=== PATIENT | female | born 1955 | race Caucasian/White ===

== ENCOUNTER 2020-05-15 09:59 | Observation (INO) | payer OTHER, MEDICAID, SELFPAY ==
[2020-05-15] VITALS (18 sets, daily range): BP systolic 155–192; BP diastolic 75–109; PULSE 69–92; RESP 14–24; TEMP 35.9–36.6; O2SAT 95–100; BMI 38.6
--- NOTE | 2020-05-15 10:19 | ED.NEUROSD ---
HPI - Neuro Symptoms/Deficit General Chief Complaint: Neuro Symptoms/Deficit Stated Complaint: Left Sided weakness Time Seen by Provider: 05/15/20 10:07 Source: patient Mode of arrival: Ambulatory Limitations: no limitations History of Present Illness HPI Narrative: Patient is a 65-year-old female history of hypertension presenting with left arm weakness. She says she woke up this morning at 5:00 a.m. in was normal. She got coffee and was able to drink it without difficulty around 930 this morning she noticed that she was unable to lift her coffee and felt like her arm was giving out. She then got up to get on the sailboat and felt like her left leg was weak. Symptoms lasted less than 30 minutes. She feels like her leg has improved in fact she is able to walk from the parking lot to the emergency department without any difficulty. Her arm weakness has also improved. No prior history of stroke. Last known well at 9:30 a.m. Related Data Home Medications Medication Instructions Recorded Confirmed calcium carbonate [Calcium 500] 1,000 mg PO DAILY 05/15/20 05/15/20 cholecalciferol (vitamin D3) 50 mcg PO DAILY 05/15/20 05/15/20 [Vitamin D3] cyclobenzaprine 10 mg PO BID 05/15/20 05/15/20 furosemide 80 mg PO BID 05/15/20 05/15/20 spironolactone 100 mg PO DAILY 05/15/20 05/15/20 vitamin B complex [B 1 tab PO DAILY 05/15/20 05/15/20 Complex-Vitamin B12] Review of Systems Review of Systems Narrative: GENERAL: Denies chills, fatigue, malaise, fever, sweats, travel HEENT: Denies sinus pain, ear pain, sore throat, difficulty swallowing, neck pain RESPIRATORY: Denies dyspnea, cough, wheezing, hemoptysis, sputum. CARDIOVASCULAR: Denies chest pain, palpitations, orthopnea, edema GASTROINTESTINAL: Denies nausea, vomiting, abdominal pain, diarrhea, constipation, melena. : Denies dysuria, frequency, incontinence, hematuria, urinary retention, flank pain. MUSCULOSKELETAL: Denies weakness, joint pain, or bony pain SKIN: No rash, no erythema, no pruritus NEUROLOGIC: See HPI PSYCHIATRIC: No concerning psychosocial issues. 12 point review of systems is negative except for those stated above and HPI Patient History Medical History Compression fracture (Acute) Hepatitis C infection (Acute) History of abdominal paracentesis (Acute) Hypertension (Acute) Non-alcoholic cirrhosis (Acute) Osteoporosis (Acute) Surgical History H/O: hysterectomy (Acute) History of appendectomy (Acute) History of liver biopsy (Acute) Hx of cholecystectomy (Acute) Social History household members: other Smoking Status: Current every day smoker alcohol intake: never Exam Initial Vital Signs Initial Vital Signs: Vital Signs Respiratory Rate 18 05/15/20 10:15 Blood Pressure 161/75 H 05/15/20 10:15 Pulse Oximetry 96 05/15/20 10:15 GENERAL: Well-appearing, well-nourished and in no acute distress. HEENT: Head atraumatic,EOMI, pupils reactive, face symmetric CARDIOVASCULAR: Regular rate and rhythm without murmurs, rubs or gallops. RESPIRATORY: Breath sounds equal bilaterally, no wheezes rales or rhonchi. ABDOMEN: Soft, nontender. Normoactive bowel sounds all 4 quadrants. No guarding or rebound. EXTREMITIES: Normal range of motion, no clubbing or edema. Neurovascularly intact NEUROLOGICAL: Alert and oriented x4.Normal gait and speech. Cranial nerves II through XII grossly intact. Difficulty finger to nose with left arm but right arm is okay, good [id number], strength equal bilaterally, no dysarthria or aphasia, sensation in tact to soft touch bilaterally, no visual changes, no facial droop SKIN: Warm, dry, no laceration, no petechiae, no rashes or lesions. Scores NIH Stroke Scale Level of Conciousness: Alert, keenly responsive Ask month/age: Answers both questions correctly. Open/close eyes, close hand: Performs both tasks correctly Best gaze horizontal: Normal Visual chandra: No visual loss Facial palsy: Normal symetrical movement Left arm drift: No drift for full 10 sec Right arm drift: No drift for full 10 sec Left leg drift: No drift for full 10 sec Right leg drift: No drift for full 10 sec Limb ataxia: Present in one limb Sensory on face/arms/legs: Normal, no sensory loss Best language: No aphasia, normal Dysarthria: Normal Extinction or inattention: No abnormality Total NIH Stroke scale score: 1 Course Orders Ordered: ED Orders 05/15/20 10:12 Urine Drug Screen, Rapid Stat EKG-12 Lead Stat 05/15/20 10:15 Complete Blood Count AUTO DIFF Stat Comprehensive Metabolic Panel Stat Partial Thromboplastin Time Stat Prothrombin Time INR Stat Troponin & CK Cardiac Panel Stat 05/15/20 10:18 CT Stroke Stat 05/15/20 11:02 MR stroke Urgent Discontinued Medications Aspirin (Aspirin Chew) 324 mg PO NOW ONE Stop: 05/15/20 10:39 Last Admin: 05/15/20 10:55 Dose: 324 mg Documented by: JOEL Rodriguez Consultation #1: Spoke with [facility] health neurologist in regards to symptoms. Patient is ambulatory and does not have any lower extremity a ataxia at this time does not recommend tPA with low NIH stroke scale. Also symptoms are improving. Time: 10:27 Vital Signs Vital signs: Vital Signs - 8 hr 05/15/20 10:15 05/15/20 10:27 05/15/20 10:30 Pulse Rate 85 85 Respiratory Rate 18 22 23 Blood Pressure 161/75 H Pulse Oximetry 96 05/15/20 10:32 05/15/20 10:45 05/15/20 11:00 Pulse Rate 84 80 82 Respiratory Rate 24 14 16 Blood Pressure 185/86 H Pulse Oximetry 95 97 97 MDM - Neuro Symptoms/Deficit Lab Data Attestation: I reviewed the patient's lab results. Result diagrams: 05/15/20 10:15 05/15/20 10:15 Labs: Lab Results 05/15/20 05/15/20 05/15/20 Range/Units 10:15 10:15 10:15 WBC 6.4 (4.5-11.0) X10^3/uL RBC 4.67 (4.0-5.2) X10^6/uL Hgb 13.3 (12.0-16.0) g/dL Hct 39.9 (36-46) % MCV 85.4 (80-100) fL MCH 28.5 (26-34) PG MCHC 33.3 (30-36) % RDW 15.7 H (11.6-14.8) % Plt Count 335 (150-400) X10^3/uL Neut % (Auto) 64.8 (50-75) % Lymph % (Auto) 26.7 (25-40) % Edmunds % (Auto) 5.4 (3-14) % Eos % (Auto) 1.9 L (2-4) % Baso % (Auto) 1.2 (0-2) % Neut # (Auto) 4200 (7212-2645) /uL Lymph # (Auto) 1700 (0985-0710) /uL Edmunds # (Auto) 300 (0-900) /uL Eos # (Auto) 100 (0-450) /uL Baso # (Auto) 100 (0-100) /uL PT 11.8 (10.1-12.7) SECONDS INR 1.0 (0.9-1.3) APTT 31 (26.4-36.2) SECONDS Sodium 139 (137-145) mmol/L Potassium 4.2 (3.4-5.1) mmol/L Chloride 110 H (98-107) mmol/L Carbon Dioxide 21 L (22-32) mmol/L BUN 11 (7-17) mg/dL Creatinine 0.69 (0.52-1.04) mg/dL Estimated GFR > 60.0 (>60) mL/min BUN/Creatinine Ratio 15.9 (6-22) Glucose 150 H (80-110) mg/dL Calcium 9.4 (8.4-10.2) mg/dL Total Bilirubin 0.7 (0.2-1.3) mg/dL AST 26 (14-36) IU/L ALT 20 (<35) IU/L Alkaline Phosphatase 95 (38-126) U/L Total Creatine Kinase 67 (30-135) U/L CK-MB (CK-2) TNP CK-MB (CK-2) Rel Index TNP Troponin I < 0.012 (0.01-0.034) ng/mL Total Protein 7.4 (6.3-8.2) g/dL Albumin 4.3 (3.5-5.0) g/dL Globulin 3.1 (1.7-4.1) g/dL Albumin/Globulin Ratio 1.4 (1.0-2.8) Imaging Data CT scan - head: Radiologist's Impression: PROCEDURE: CT STROKE INDICATIONS: left arm weakness TECHNIQUE: Noncontrast 4.5 mm thick angled axial sections acquired from the foramen magnum to the vertex, with coronal reformats. For radiation dose reduction, the following was used: automated exposure control, adjustment of mA and/or kV according to patient size. COMPARISON: None. FINDINGS: Image quality: Excellent. CSF spaces: Basal cisterns are patent. No extra-axial fluid collections. The ventricles are symmetric in size and shape. Brain: There are foci of hypodensities in the left basal ganglia, right internal capsule and right subinsular white matter, compatible with old or late subacute lacunar infarcts. No intracranial bleeds or masses. There is cerebral volume loss for age, with resultant ventricular and sulcal prominence. There are mild periventricular and deep white matter chronic small vessel ischemic changes. There is intracranial internal carotid artery atherosclerosis. Skull and face: Calvarium and visualized facial bones appear intact, without suspicious lesions. Sinuses: Visualized sinuses and mastoids are clear. IMPRESSION: 1. No acute intracranial abnormalities. 2. Small old or late subacute lacunar infarcts involving the left basal ganglia, right internal capsule and subinsular white matter. 3. Cerebral volume loss and chronic microvascular ischemic changes. The result was discussed with Dr. Pagan on 05/15/2020 at 1025 hours. This study fulfills neurological imaging criteria for inclusion or exclusion of acute stroke therapies based on available published neurological guidelines. Dictated by: Kt Jara M.D. on 05/15/2020 at 10:25 Approved by: Kt Jara M.D. on 05/15/2020 at 10:31 ECG Data Attestation: I personally reviewed and interpreted this ECG as follows: Prior ECG tracings: not available for review Interpretation: Normal sinus rhythm rate 86 p.r. interval 1-[address] changes MDM Narrative Medical decision making narrative: The patient is re-evaluated her ataxia and her left his arm has improved although she still is slightly off. Neurology does tPA patient then complained of some numbness in her hand a lot in her thenar eminence but no other symptoms. Patient is being admitted for TIA/CVA workup she was given aspirin. Dr. Phillips, updated patient's symptoms test results agrees with observation Discharge Plan Departure Patient Disposition: Admitted as Observation Clinical Impression: Brain TIA Admit Date/Time: 05/15/20 11:03 Admit Provider: Checo Phillips
[2020-05-15 10:23] LABS: Add Manual Diff / Slide Review NO; Basophils Absolute Auto 100 /uL (0-100); Basophils Percent Auto 1.2 % (0-2); Eosinophils Absolute Auto 100 /uL (0-450); Eosinophils Percent Auto 1.9 % (2-4); Hematocrit 39.9 % (36-46); Hemoglobin 13.3 g/dL (12.0-16.0); Lymphocytes Absolute Auto 1700 /uL (1100-4500); Lymphocytes Percent Auto 26.7 % (25-40); Mean Corpuscular HGB Conc 33.3 % (30-36); Mean Corpuscular Hemoglobin 28.5 PG (26-34); Mean Corpuscular Volume 85.4 fL (80-100); Monocytes Absolute Auto 300 /uL (0-900); Monocytes Percent Auto 5.4 % (3-14); Neutrophils Absolute Auto 4200 /uL (1500-7000); Neutrophils Percent Auto 64.8 % (50-75); Platelet Count 335 X10^3/uL (150-400); Red Blood Cell Count 4.67 X10^6/uL (4.0-5.2); Red Cell Distribution Width 15.7 % (11.6-14.8); White Blood Cell Count 6.4 X10^3/uL (4.5-11.0)
[2020-05-15 10:29] LABS: Prothrombin Time 11.8 SECONDS (10.1-12.7)
[2020-05-15 10:32] LABS: PTT Partial Thromboplastin Tim 31 SECONDS (26.4-36.2)
[2020-05-15 10:36] LABS: Alanine Aminotransferase 20 IU/L (<35); Albumin 4.3 g/dL (3.5-5.0); Albumin Globulin Ratio 1.4 (1.0-2.8); Alkaline Phosphatase 95 U/L (38-126); Aspartate Aminotransferase 26 IU/L (14-36); BUN Creatinine Ratio 15.9 (6-22); Bilirubin Total 0.7 mg/dL (0.2-1.3); Blood Urea Nitrogen 11 mg/dL (7-17); Calcium 9.4 mg/dL (8.4-10.2); Carbon Dioxide 21 mmol/L (22-32); Chloride 110 mmol/L (98-107); Creatine Kinase 67 U/L (30-135); Estimated Glomerular Filt Rate > 60.0 mL/min (>60); Globulin 3.1 g/dL (1.7-4.1); Glucose 150 mg/dL (80-110); HEMOLYSIS 19 (0-50); Potassium 4.2 mmol/L (3.4-5.1); Sodium 139 mmol/L (137-145); Total Protein 7.4 g/dL (6.3-8.2)
[2020-05-15 10:47] LABS: Troponin I < 0.012 ng/mL (0.01-0.034)
[2020-05-15] MEDS: ASPIRIN 81 MG CHEW TAB 324 MG PO (10:55)
--- NOTE | 2020-05-15 11:02 | DI.MRI.S_ITS ---
PROCEDURE: MR STROKE Pre- and post-contrast brain MRI, non-contrast brain MR angiogram, pre- and postcontrast neck MR angiogram INDICATIONS: Left sided weakness and ataxia. TECHNIQUE: Brain: Noncontrast axial T1 spin echo, axial T2 fast spin echo, sagittal and axial FLAIR, coronal T2 fast spin echo, axial gradient echo, axial diffusion and ADC through the brain. After the administration of contrast, axial 3D VIBE of the cranial vasculature and brain. Brain MRA: Non-contrast 3-D time of flight MR angiogram, with multiple hnoxyod-meeeqymgi-gacbrvdjmw (MIP) reformats performed. Neck MRA: Axial and sagittal TruFISP through the neck. Coronal dynamic MR angiogram during administration of contrast in the arterial and venous phases, with 3-dimenstional hoofukf-cxoqknjkx-ixmhenhuzd (MIP) reformats constructed from subtraction images. COMPARISON: None. FINDINGS: Image quality: Excellent. BRAIN: Restricted diffusion in the right basal ganglia, striatocapsular region. Additional tiny focus of restricted diffusion in the right periventricular white matter of the jimenes radiata (series 11, image 65). Mild associated FLAIR signal abnormality. Chronic microvascular ischemic changes. Mild global cerebral volume loss. The major intracranial vascular flow-related signal voids are maintained. No findings of mass effect or midline shift. Normal ventricular caliber and position. Orbital structures unremarkable. Paranasal sinuses and mastoid air cells predominantly clear. No abnormal intracranial enhancement. BRAIN MR ANGIOGRAM: Anterior circulation: Intracranial internal carotid arteries are normal in size and enhancement. The flow within the paired anterior cerebral arteries is normal and symmetric. The flow within the middle cerebral arteries is normal and symmetric. The anterior communicating artery is seen. No stenoses, occlusions, or aneurysms. Posterior circulation: The visualized portions of the vertebral arteries demonstrate normal caliber, and join to form a normal appearing basilar artery. The flow within the posterior cerebral arteries is normal and symmetric. No stenoses, occlusions, or aneurysms. NECK MR ANGIOGRAM: Carotids: Great vessels demonstrate a conventional anatomy as they arise from the aortic arch. The origins of the common carotid arteries appear patent. The calibers and courses of both common carotid arteries are normal. The bifurcation regions appear normal bilaterally. The internal carotid arteries demonstrate normal course and caliber. Posterior circulation: The origins of the vertebral arteries appear patent. More superior portions of both vertebral arteries demonstrate normal course and caliber, and join to form a normal appearing basilar artery. Miscellaneous: Subclavian arteries appear patent. IMPRESSION: BRAIN MRI: Small acute infarct in the right striatocapular region. Tiny acute infarct in the adjacent right periventricular white matter. Fyuq-fn-ohiwuftt microvascular ischemic changes. BRAIN MR ANGIOGRAM: No MR angiogram evidence of occlusion or hemodynamically significant stenosis of the major intracranial arterial circulation. NECK MR ANGIOGRAM: No MR angiogram evidence of occlusion or hemodynamically significant stenosis of the major extracranial arterial circulation Dictated by: Zeb Morales M.D. on 05/15/2020 at 16:35 Approved by: Zeb Morales M.D. on 05/15/2020 at 16:41
[2020-05-15 12:44] LABS: COVID19 -Nasal RAPID Negative (Negative)
--- NOTE | 2020-05-15 13:06 | PC.ADMIT ---
[address] [facility] [address] Admission Note: Safe hand off ED. Patient arrived via stretcher to room. Patient was able to walk to room from hallway, standby assist. Patient VSS, Lung sounds clear, no c/o pain. Patient alert and oriented x 4. Patient is resting comfortably in bed, is a little tearful regarding daughter coming to see her. Patient was educated about use of call light, bed is low and locked and bed alarm is active. The patient,Tiny Almodovar,65 y/o, was given written information regarding hospital policies, unit procedures and contact persons. Patient's smoking status: Current every day smoker. Vital Signs - 8 hr 05/15/20 10:15 05/15/20 10:27 05/15/20 10:30 Temperature Pulse Rate 85 85 Respiratory Rate 18 22 23 Blood Pressure 161/75 H Pulse Oximetry 96 05/15/20 10:32 05/15/20 10:45 05/15/20 11:00 Temperature Pulse Rate 84 80 82 Respiratory Rate 24 14 16 Blood Pressure 185/86 H Pulse Oximetry 95 97 97 05/15/20 11:15 05/15/20 11:30 05/15/20 11:45 Temperature Pulse Rate 87 80 75 Respiratory Rate 15 15 Blood Pressure Pulse Oximetry 99 97 96 05/15/20 12:00 05/15/20 12:15 05/15/20 12:45 Temperature 97.8 F Pulse Rate 82 73 76 Respiratory Rate 16 16 18 Blood Pressure 187/86 H 174/103 H Pulse Oximetry 98 96 98
--- NOTE | 2020-05-15 14:49 | PM.HP.1 ---
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 She resides in [place] normally, but is currently in [place] taking care of her mother. She reports some increased stress recently due to family strife. This morning she was in her usual state of health, and went to go get coffee. When she attempted to drink her coffee at the [place], she felt her left arm was very heavy and she could not hold her coffee. She was able to walk back to her boat, with waxing and waning UE symptoms, but then she felt a similar heaviness in her left leg and had difficulty moving it as well. She had some trouble balancing that was noted as well. She did look at herself in the mirror and did not notice a facial droop or any difficulty with words. She was able to call her sister She states that her sister has had a TIA, but denies any similar symptoms in the past. She denies any recent fevers, chills, chest pain, palpitations, shortness of breath, orthopnea, lower extremity edema. She does have occasional abdominal swelling that is usually controlled with her Lasix and Aldactone which she has been taking chronically. In the emergency room, her vital signs were notable for mild hypertension into the 180 systolics, but the rest of her vital signs were unremarkable. Laboratory evaluation showed an unremarkable CBC, normal coagulation studies. Chemistries revealed a mildly elevated chloride at 110, and a glucose of 150 but was further unremarkable. Troponin was negative. COVID-19 testing was negative. EKG showed normal sinus rhythm with an isolated T-wave inversion lead V3 only, a nonspecific finding. There were no ST elevations or depressions indicative of ischemia. CT head was negative. In the emergency room her left-sided weakness improved. The ER discussed the case with tele neurology, given patient's low stroke scale and improving symptoms tPA was not recommended. The patient was admitted under observation status for further evaluation and monitoring of likely TIA or acute CVA. Patient History Medical History Compression fracture (Acute) Hepatitis C infection (Acute) History of abdominal paracentesis (Acute) Hypertension (Acute) Non-alcoholic cirrhosis (Acute) Osteoporosis (Acute) Surgical History H/O: hysterectomy (Acute) History of appendectomy (Acute) History of liver biopsy (Acute) Hx of cholecystectomy (Acute) Family & Social History Social History: household members other Prior Living Arrangements Mobile home Safety & Behavioral: Feels Safe in Current Yes Environment Been Physically Hurt or No Threatened By a Person Suicidal Ideation Description None Suicide Plan Description No Plan Tobacco & Substance use: Tobacco type cigarettes Smoking Status Current every day smoker Smoking packs per day 1 alcohol intake never alcohol intake frequency 0-2 drinks per day Substance Use Type does not use Meds Home Medications and Allergies Home Medications Medication Instructions Recorded Confirmed Type calcium carbonate [Calcium 500] 1,000 mg PO DAILY 05/15/20 05/15/20 History cholecalciferol (vitamin D3) 50 mcg PO DAILY 05/15/20 05/15/20 History [Vitamin D3] cyclobenzaprine 10 mg PO BID 05/15/20 05/15/20 History furosemide 80 mg PO BID 05/15/20 05/15/20 History spironolactone 100 mg PO DAILY 05/15/20 05/15/20 History vitamin B complex [B 1 tab PO DAILY 05/15/20 05/15/20 History Complex-Vitamin B12] Review of Systems Review of Systems Narrative: All other systems reviewed with the patient and are negative unless otherwise stated. Exam Vital Signs (past 8 hours): - 05/15/20 10:15 05/15/20 10:27 05/15/20 10:30 Temperature Pulse Rate 85 85 Respiratory Rate 18 22 23 Blood Pressure 161/75 H Pulse Oximetry 96 05/15/20 10:32 05/15/20 10:45 05/15/20 11:00 Temperature Pulse Rate 84 80 82 Respiratory Rate 24 14 16 Blood Pressure 185/86 H Pulse Oximetry 95 97 97 05/15/20 11:15 05/15/20 11:30 05/15/20 11:45 Temperature Pulse Rate 87 80 75 Respiratory Rate 15 15 Blood Pressure Pulse Oximetry 99 97 96 05/15/20 12:00 05/15/20 12:15 05/15/20 12:45 Temperature 97.8 F Pulse Rate 82 73 76 Respiratory Rate 16 16 18 Blood Pressure 187/86 H 174/103 H Pulse Oximetry 98 96 98 Oxygen Delivery Method Room Air Oxygen Flow Rate 0 Narrative Exam Narrative: GENERAL APPEARANCE: Well developed, well nourished, obese with BMI of 35.1, in no acute distress. SKIN: Inspection of the skin reveals no rashes, ulcerations or petechiae. HEENT: Normocephalic atraumatic, extraocular muscles are intact, oropharynx is clear and mucous membranes are moist, neck is supple without adenopathy NECK: Supple and symmetric. There was no thyroid enlargement, and no tenderness, or masses were felt. CHEST: Normal AP diameter and normal contour without any kyphoscoliosis. LUNGS: Auscultation of the lungs revealed no wheezes, rhonchi, or rales. CARDIOVASCULAR: There was a regular rate and rhythm without any murmurs, gallops, rubs. Peripheral pulses were 2+ and symmetric. ABDOMEN: Soft and nontender with normal bowel sounds. No ascites was noted. MUSCULOSKELETAL: There was no tenderness or effusions noted. Muscle strength and tone were normal. EXTREMITIES: No cyanosis, clubbing or edema. NEUROLOGIC: Alert and oriented x 3. Normal affect. Strength is +5/5 in the Upper Extremities and Lower Extremities Bilaterally, however strength was seemingly diminished in her left compared to her right. Finger to nose testing with mild dysmetria on the left. Sensation to touch was normal. Cranial nerves 2-12 grossly intact bilaterally. NIH stroke scale is documented below. Objective Labs Result Diagrams: 05/15/20 10:15 05/15/20 10:15 Labs: Laboratory Results - last 24 hr 05/15/20 05/15/20 05/15/20 10:15 10:15 10:15 WBC 6.4 RBC 4.67 Hgb 13.3 Hct 39.9 MCV 85.4 MCH 28.5 MCHC 33.3 RDW 15.7 H Plt Count 335 Neut % (Auto) 64.8 Lymph % (Auto) 26.7 [place] % (Auto) 5.4 Eos % (Auto) 1.9 L Baso % (Auto) 1.2 Neut # (Auto) 4200 Lymph # (Auto) 1700 [place] # (Auto) 300 Eos # (Auto) 100 Baso # (Auto) 100 PT 11.8 INR 1.0 APTT 31 Sodium 139 Potassium 4.2 Chloride 110 H Carbon Dioxide 21 L BUN 11 Creatinine 0.69 Estimated GFR > 60.0 BUN/Creatinine Ratio 15.9 Glucose 150 H Calcium 9.4 Total Bilirubin 0.7 AST 26 ALT 20 Alkaline Phosphatase 95 Total Creatine Kinase 67 CK-MB (CK-2) TNP CK-MB (CK-2) Rel Index TNP Troponin I < 0.012 Total Protein 7.4 Albumin 4.3 Globulin 3.1 Albumin/Globulin Ratio 1.4 COVID-19 PCR 05/15/20 11:25 WBC RBC Hgb Hct MCV MCH MCHC RDW Plt Count Neut % (Auto) Lymph % (Auto) [place] % (Auto) Eos % (Auto) Baso % (Auto) Neut # (Auto) Lymph # (Auto) 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 She still has some minor symptoms including some left-sided dysmetria and objective weakness although her symptoms are improving. She is admitted with likely TIA versus acute CVA, for further evaluation and management. 1. Left-sided weakness, acute, present on admission, improved -likely TIA versus acute CVA. Patient still with some L sided dysmetria and weakness but improving. Symptoms started at [address] in the emergency room did not show acute hemorrhage. Given improving symptoms tPA was not recommended by tele neurology in the emergency room. Patient was given aspirin 324 mg. Given her current stroke scale of 1, or ABCD2 score of 6 (see below) she would benefit from dual antiplatelet therapy for the next 3 weeks. Patient was additionally ordered for Plavix 300 mg. She will continue on aspirin 81 mg daily for the rest of her life, and Plavix 75 mg daily for the next 3 weeks for additional stroke prevention. -continue telemetry -have ordered MR stroke protocol -PT/OT evaluations -further risk stratify with A1c, TSH, lipid panel -patient does have history of hep C cirrhosis but normal liver function testing. Will give 40 mg of Lipitor starting this evening. -allow for permissive hypertension over the 1st 24 hours -NIHSS Qshift -ordered TTE 2. Hypertension - Patient hypertensive on admission, possibly in the setting of acute CVA. Will allow for permissive hypertension over the 1st 24 hours. She will continue on her home dose of Lasix and Aldactone given hep C cirrhosis as noted below. 3. Hepatitis-C cirrhosis -continue home Lasix and Aldactone Code: Full Dispo: Admitted under observation status as her stay is not expected to exceed 2 midnights DVT: Lovenox daily COVID-19 COVID-19 status: Negative Scores ABCD2 Age >= 60 years: yes Initial BP. Either SBP >= 140 or DBP >= 90.: yes Clinical features of the TIA: unilateral weakness Duration of symptoms: >= 60 minutes History of diabetes: no ABCD2 Score: 6 NIHSS Level of Conciousness: Alert, keenly responsive Ask month/age: Answers both questions correctly. Open/close eyes, close hand: Performs both tasks correctly Best gaze horizontal: Normal Visual chandra: No visual loss Facial palsy: Normal symetrical movement Left arm drift: No drift for full 10 sec Right arm drift: No drift for full 10 sec Left leg drift: No drift for full 5 sec Right leg drift: No drift for full 5 sec Limb ataxia: Present in one limb Sensory on face/arms/legs: Normal, no sensory loss Best language: No aphasia, normal Dysarthria: Normal Extinction or inattention: No abnormality Total NIH Stroke scale score: 1 Quality VTE Deep Vein Thrombosis/Pulmonary Embolism Present on Admission: No
--- NOTE | 2020-05-15 15:20 | PC.NURSE ---
Patient hypertensive 174/103, Dr. Phillips notified of patient status.
[2020-05-15] MEDS: CLOPIDOGREL 75 MG TABLET 300 MG PO (16:25)
[2020-05-15] MEDS: ATORVASTATIN 20 MG TABLET 40 MG PO (20:30)
[2020-05-15] MEDS: FUROSEMIDE 40 MG TABLET 80 MG PO (20:31)
--- NOTE | 2020-05-16 00:08 | PC.NURSE ---
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 Breath sounds with crackles in left LL; RA sat 96%. HRR; telemetry reading was SR. Denies nausea. BT present and abdomen is soft. Urinary frequency related to use of diuretic but denies dysuria or urgency. Independent with mobility. Denies pain. Bilateral calf SCD's applied. Fall risk score is low.
[2020-05-16 03:08] VITALS: BP 109/78; PULSE 89; RESP 16; TEMP 36.2; O2SAT 96
[2020-05-16 05:26] LABS: Cholesterol 199 mg/dL (140-199); HDL Cholesterol 49 mg/dL (40-60); LDL Cholesterol Calculated 119 mg/dL (<100); Triglycerides 156 mg/dL (35-150)
[2020-05-16 05:27] LABS: BUN Creatinine Ratio 17.4 (6-22); Blood Urea Nitrogen 15 mg/dL (7-17); Carbon Dioxide 24 mmol/L (22-32); Chloride 103 mmol/L (98-107); Estimated Glomerular Filt Rate > 60.0 mL/min (>60); Glucose 111 mg/dL (80-110); HEMOLYSIS < 15 (0-50); Potassium 3.5 mmol/L (3.4-5.1); Sodium 137 mmol/L (137-145)
[2020-05-16 05:32] LABS: Hemoglobin A1C% w Est Avg Glu 5.8 % (4.0-6.0)
[2020-05-16 05:57] LABS: TSH w/ Reflex to FT4 4.84 uIU/mL (0.47-4.68)
[2020-05-16 06:25] LABS: Free T4, Direct Thyroxine 1.25 ng/dL (0.78-2.19)
[2020-05-16 08:00] VITALS: BP 119/88; PULSE 79; RESP 18; TEMP 36.1; O2SAT 94
[2020-05-16] MEDS: FUROSEMIDE 40 MG TABLET 80 MG PO (09:04)
[2020-05-16] MEDS: SPIRONOLACTONE 50 MG TABLET 100 MG PO (09:04)
[2020-05-16] MEDS: SODIUM CHLORIDE 0.9% FLUSH 10 ML IV (09:05)
[2020-05-16] MEDS: CLOPIDOGREL 75 MG TABLET PO (09:05)
[2020-05-16] MEDS: ASPIRIN EC 81 MG TABLET PO (09:05)
[2020-05-16] MEDS: CHOLECALCIFEROL (VITAMIN D3) 1,000 UNIT TABLET 2000 UNIT PO (09:05)
[2020-05-16] MEDS: ENOXAPARIN 40 MG/0.4 ML SYRINGE SUBCUT (09:06)
--- NOTE | 2020-05-16 09:50 | DI.ECHO.S_ITS ---
[facility] +---------+ [facility] +---------+ : : [address] : : : : [id number] : : : : Phone: [phone]+ Echocardiogram Report + + :Name: NICOLLE POWER Study Date: 05/16/2020 Height: 63 in : :[facility] Weight: 196 lb : : Gender: Female BSA: 1.9 m2 : :: 1955 Age: 65 yrs BP: 109/78 mmHg: :Reason For Study: CVA : :Ordering Physician: HOSPITALIST, : :MILIND Performed By: Priscilla Keller : :Referring: AZUCENA RAMON : + + Interpretation Summary The left ventricle is hyperdynamic. The echo findings are consistent with trivial dynamic left ventricular intracavitary obstruction. There are no focal wall motion abnormalities. Diastolic parameters suggest a relaxation abnormality of the left ventricle, consistent with probable normal filling pressures. The right ventricle is normal in size and function. Doppler interrogation and injection of saline echo contrast shows no evidence for an interatrial shunt. No hemodynamically significant valvular abnormalities. No prior echocardiograms for comparison. Procedure: A two-dimensional transthoracic echocardiogram with color flow and Doppler was performed. The study quality was technically adequate. The subcostal views were difficult to obtain and are suboptimal in quality. There is no prior echocardiogram noted for this patient. A saline contrast injection was performed to assess for cardiac shunting. The injection was performed through an intravenous line in the right arm. The patient was in 73-80 during the exam. Left Ventricle: The left ventricle is normal in size and wall thickness. The echo findings are consistent with trivial dynamic left ventricular intracavitary obstruction. The ejection fraction is estimated to be 65-70%. The left ventricle is hyperdynamic. There are no focal wall motion abnormalities. Diastolic parameters suggest a relaxation abnormality of the left ventricle, consistent with probable normal filling pressures. Right Ventricle: The right ventricle is normal in size and function. Atria: Both atria are normal in size. Doppler interrogation and injection of saline echo contrast shows no evidence for an interatrial shunt. Mitral Valve: The mitral valve is normal in structure and function. There is no mitral regurgitation noted. Aortic Valve: The aortic valve is trileaflet. The aortic valve opens well. There is no aortic valve stenosis. No aortic regurgitation is present. Tricuspid Valve: The tricuspid valve is normal in structure and function. Pulmonary artery pressures cannot be estimated because of the lack of a measurable TR jet velocity. There is a trace or physiologic amount of tricuspid regurgitation. Pulmonic Valve: The pulmonic valve is not well visualized. The pulmonic valve is not well seen, but is grossly normal. There is a trace or physiologic amount of pulmonic regurgitation. Great Vessels: The aortic root is normal size. The dimensions of the ascending aorta are normal. The inferior vena cava was not visualized. Pericardium/ Pleura There is no pericardial effusion. There is no pleural effusion. MMode/2D Measurements & Calculations LVIDd: 4.0 cm LVOT diam: 2.0 cm LVIDs: 2.8 cm Ao root diam: 2.7 cm FS: 29.0 % asc Aorta Diam: 3.0 cm EPSS: 0.46 cm Ao Arch Diam (Prox Trans): 2.7 cm IVSd: 1.00 cm LVPWd: 1.00 cm LV jenkins. diameter/BSA (cm/m^2): 2.1 LV sys. diameter/BSA (cm/m^2): 1.5 LA A2 area: 13.7 cm2 RA long axis: 4.6 cm LA A4 area: 14.0 cm2 RA area: 14.2 cm2 LA length (vol): 5.0 cm RA vol: 37.1 ml LA vol: 32.6 ml RA : 19.4 ml/m2 LA vol index: 17.0 ml/m2 RVD1 (basal): 3.3 cm TAPSE: 1.8 cm Doppler Measurements & Calculations Ao V2 max: 162.9 cm/sec LVOT Max Jez: 101.2 cm/sec Ao V2 mean: 84.0 cm/sec LV V1 max P.1 mmHg Ao max P.6 mmHg LV V1 VTI: 23.5 cm Ao mean P.6 mmHg RICHAR(I,D): 2.2 cm2 Ao V2 VTI: 33.6 cm RICHAR(V,D): 2.0 cm2 sev ratio: 0.70 RICHAR indexed to BSA (cm^2/m^2): 1.2 MV E max jez: 52.7 cm/sec PA V2 max: 97.6 cm/sec MV A max jez: 70.5 cm/sec PA V2 mean: 68.3 cm/sec MV E/A: 0.75 PA mean P.1 mmHg Med Peak E' Jez: 4.3 cm/sec PA pr(Accel): 55.0 mmHg E/E' med: 12.2 Lat Peak E' Jez: 9.5 cm/sec E/E' lat: 5.5 E/e' average: 8.8 MV dec time: 0.32 sec SV(LVOT): 74.7 ml Electronically signed by: Ray Colin M.D. on Reading Physician:05/16/2020 01:32 PM
--- NOTE | 2020-05-16 10:20 | OT.IP.EVAL ---
Past Medical History (Last Reviewed 05/15/20 @ 13:18 by Latonia Pagan DO) Compression fracture (Acute) Hepatitis C infection (Acute) History of abdominal paracentesis (Acute) Hypertension (Acute) Non-alcoholic cirrhosis (Acute) Osteoporosis (Acute) Surgical History (Last Reviewed 05/15/20 @ 13:18 by Latonia Pagan DO) H/O: hysterectomy (Acute) History of appendectomy (Acute) History of liver biopsy (Acute) Hx of cholecystectomy (Acute) Occupational Therapy Inpatient Evaluation/Re-Eval M1 PT/OT-IP Prior Functional Status Start: 05/16/20 12:16 Freq: NEEDED Status: Active Protocol: Document 05/16/20 09:50 [facility] (Rec: 05/16/20 12:42 [facility] [id number]) Medical Review Prior Functional Status Medical History Reviewed Yes Communication WNL Mobility and Gait IND with a limit of a few blocks due to back pain resulting from chronic compression fractures Activities of Daily Living and IADL's IND. Pt drives. Prior Functional Level (Other details) Pt has an adjustable bed where she primarily sleeps Social History Household Members other Living Arrangements Mobile home Number of Floors (Floors) One Floor Number of Stairs To Enter/Railing? Ramped entry Home Environment High Toilet,Walk in Shower,Tub /Shower,Ramp Home Equipment Straight Cane,Grab Bars Near Toilet,Grab Bars In Shower Additional Social History Comment Pt lives in [place] and is in [place] for a vacation. 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 M2 OT-IP Current Condition Start: 05/16/20 12:16 Freq: Status: Active Protocol: Document 05/16/20 09:50 [facility] (Rec: 05/16/20 12:42 [facility] [id number]) Occupational Therapy Current Condition Current Condition Evaluation Date 05/16/20 Treatment Diagnosis small infarct in right striatocapular regon and tiny acute infarct in the adjacent right perventicular white matter. Diagnosis Onset Date 05/15/20 M3 OT- IP Subjective and Pain Start: 05/16/20 12:16 Freq: Status: Active Protocol: Document 05/16/20 09:50 [facility] (Rec: 05/16/20 12:42 [facility] [id number]) OT- Subjective Occupational Therapy Visit Type Type Initial Evaluation Visit Start Time 09:50 Visit Stop Time 10:20 Total Visit Minutes 30 Occupational Therapy Visit Comments Patient Comments Pt agreeable to do OT eval. Patient/Caregiver Goals To go home. OT Pain Assessment Pain When Pain Assessed At Rest Pain Present Pain Present Denied Pain M4 OT- IP ADL's Start: 05/16/20 12:16 Freq: Status: Active Protocol: Document 05/16/20 09:50 [facility] (Rec: 05/16/20 12:42 [facility] [id number]) OT ADL-Grooming Comments OT Grooming Comments Pt states already completed on her own. OT ADL-Dressing General Eval Lower Body Dressing Ability Independent OT ADL-Toileting General Evaluation Toileting Ability Independent OT ADL-Bathing Comments OT Bathing Comments NOt at this time. M5 OT- IP IADL's Start: 05/16/20 12:16 Freq: Status: Active Protocol: Document 05/16/20 09:50 [facility] (Rec: 05/16/20 12:42 [facility] [id number]) OT-Instrumental Activities of Daily Living Home Safety Awareness Awareness of Need for Assistance at Home Good Awareness Ability to Problem Solve Emergency Able to Problem Solve Situations Medication Management Medication Management No Deficits Identified Money Management Money Management No Deficits Identified Meal Preparation Meal Preparation No Deficits Identified Director Athletic Director Athletic No Deficits Identified M6 OT- IP Functional Cognition Start: 05/16/20 12:16 Freq: Status: Active Protocol: Document 05/16/20 09:50 [facility] (Rec: 05/16/20 12:42 [facility] [id number]) Cognitive Factors Limiting Selfcare Function Cognitive Ability Level of Alertness Alert Patient Orientation Name,Age,Birthday,Month,Date, Year,Day of Week,Place, Situation Attention Span Ability Capable of Focused Attention, Capable of Sustained Attention Ability to Follow Commands Able to Follow Multi-Step Commands Memory Description No Deficits Noted Safety Awareness No Deficits Noted Problem Solving Ability No deficits Noted Executive Function Ability No Deficits Noted Cognitive Comments Cognitive Assessment Comments NO deficits noted. Pt scored 46 seconds on [place] Making B which a scored of 65 seocnds or less indicate a perfect score which indicated normal for task switching, visual attention, executive thinking , speed of processing and mental flexibility. OT- Vision and Hearing OT- Hearing Assessment OT- Hearing Assessment WFL OT- Vision Assessment Visual Acuity Glasses All The Time Visual Attentiveness WFL Occular Pursuits WFL Visual Convergence WFL Visual Nguyen WFL M7 OT- IP Mobility and Balance Start: 05/16/20 12:16 Freq: Status: Active Protocol: Document 05/16/20 09:50 [facility] (Rec: 05/16/20 12:42 [facility] [id number]) OT- Bed Mobility Assessment Rolling Type of Rolling Roll to Left Level of Assistance Independent Supine to Sit Supine to Sit Assist Independent Scooting Scooting to Edge of Bed Independent OT-Transfer Assessment Sit to and From Stand Sit to and from Stand Independent Transfers Transfer Ability Independent Technique Transfer Destination Bed,Chair Transfer Technique Stand Step Pivot Devices Transfer Assistive Devices None,Gait Belt Comments Mobility Comments Pt completely independent in the room without a device. Pt able to tandem stance, and stand on one foot. Per pt states feels at baseline but feeling slightly weaker. OT- Balance Assessment Sitting Balance and Reactions Static Sitting Balance Ability Normal Dynamic Sitting Balance Ability Normal Standing Balance and Reactions Static Standing Balance Ability Normal M8 OT- IP Objective Assessments Start: 05/16/20 12:16 Freq: Status: Active Protocol: Document 05/16/20 09:50 [facility] (Rec: 05/16/20 12:42 [facility] [id number]) OT Gross Range of Motion Upper Extremity Range of Motion Assessment Within Functional Limits OT Strength Upper Extremity Strength Assessment Within Functional Limits Comments Strength Comments BUE 4+/5 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 OT-Muscle Tone Assessment Muscle Tone WNL Yes OT Sensation Assessment Comments Summary Comments Intact for light touch. M9 OT- IP Assessment and Plan Start: 05/16/20 12:16 Freq: Status: Active Protocol: Document 05/16/20 09:50 [facility] (Rec: 05/16/20 12:42 [facility] [id number]) OT Summary Assessment and Plan Potential Rehabilitation Potential Excellent Analytic Complexity at Evaluation Low Summary OT Impairments Coordination Progress Towards Goals Progressing Toward Goals Assessment Summary Pt low complexity and here for small acute infarct in right striatocular region and tiny acute infarct in the adjacent right penvientricular white matter. Pt on OT eval only noted slight decrease in coordination of speed and fluidity of movement. Pt looking to go home when medically stable. Able to talk to pt regarding stress management as pt has been taking care of her elder mother who has cognitive deficits. Suggested to pt for activities to do with her mother, having a structured routine and to be sure have time for herself. Goals OT-Other Goals Pt to come up with ways to incorporate stress management into her daily routine. Days to Meet Goals 1 Frequency of Treatment Frequency Of Treatment Once a Day Treatment Plan OT Treatment Plan Patient/Family Education Discharge Recommendations OT Discharge Recommendations Home Transportation Needs at Discharge Private Vehicle
--- NOTE | 2020-05-16 10:59 | PC.NURSE ---
Addendum entered by Waldo Rene R.N. 05/16/20 14:58: All discharge teaching done, patient acknowledged understanding. Patient wheeled to private car via wheelchair and [employer], patient going home with daughter. Patient educated about diagnosis and medications. Original Note: Patient VSS, NIH 0. Patient to have EC today before being discharged.
--- NOTE | 2020-05-16 11:36 | PT.IIE ---
Surgical History (Last Reviewed 05/15/20 @ 13:18 by Latonia Pagan DO) H/O: hysterectomy (Acute) History of appendectomy (Acute) History of liver biopsy (Acute) Hx of cholecystectomy (Acute) Medical History (Last Reviewed 05/15/20 @ 13:18 by Latonia Pagan DO) Compression fracture (Acute) Hepatitis C infection (Acute) History of abdominal paracentesis (Acute) Hypertension (Acute) Non-alcoholic cirrhosis (Acute) Osteoporosis (Acute) Physical Therapy Inpatient Evaluation/Re-Eval M1 PT/OT-IP Prior Functional Status Start: 05/16/20 08:41 Freq: NEEDED Status: Active Protocol: Document 05/16/20 11:13 AW (Rec: 05/16/20 11:36 AW [id number]) Medical Review Prior Functional Status Medical History Reviewed Yes Communication WNL Mobility and Gait IND with a limit of a few blocks due to back pain resulting from chronic compression fractures Activities of Daily Living and IADL's IND. Pt drives. Prior Functional Level (Other details) Pt has an adjustable bed where she primarily sleeps Social History Household Members other Living Arrangements Mobile home Number of Floors (Floors) One Floor Number of Stairs To Enter/Railing? Ramped entry Home Environment High Toilet,Walk in Shower,Tub /Shower,Ramp Home Equipment Straight Cane,Grab Bars Near Toilet,Grab Bars In Shower Additional Social History Comment Pt lives in [place] and is in [place] for a vacation. 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 M2 PT-IP Current Condition Start: 05/16/20 08:41 Freq: NEEDED Status: Active Protocol: Document 05/16/20 11:13 AW (Rec: 05/16/20 11:36 AW [id number]) Physical Therapy Current Condition Current Condition Evaluation Date 05/16/20 Treatment Diagnosis left basal ganglia CVA, left- sided weakness, dysmetria Onset Date 05/15/20 M3 PT-IP Subjective Start: 05/16/20 08:41 Freq: NEEDED Status: Active Protocol: Document 05/16/20 11:13 AW (Rec: 05/16/20 11:36 AW [id number]) Subjective Physical Therapy Visit Type Type Initial Evaluation Visit Start Time 10:18 Visit Stop Time 10:39 Total Visit Minutes 21 Notes MRI: Small acute infarct in the right striatocapular region. Tiny acute infarct in the adjacent right periventricular white matter. [id number] microvascular ischemic changes . Physical Therapy Visit Comments Patient Comments Pt is feeling good and ready to participate with PT Patient Goals Pt hopes to continue her vacation Therapy Pain Assessment Pain When Pain Assessed During Mobility Pain Present Pain Present Denied Pain M4 PT-IP Mobility and Gait Start: 05/16/20 08:41 Freq: NEEDED Status: Active Protocol: Document 05/16/20 11:13 AW (Rec: 05/16/20 11:36 AW [id number]) PT-Bed Mobility Assessment Supine to Sit Supine to Sit Independent Sit to Supine Sit to Supine Independent Scooting Scooting to Edge of Bed Independent PT-Transfer Assessment Sit to and From Stand Sit to and from Stand Independent Equipment Transfer Assistive Device None Transfers Transfer Destination Bed,Chair Transfer Technique pt ambulated IND Transfer Ability Level of Assist Independent Comments Mobility Comments Pt was sitting up in the chair finishing up with OT when PT arrived. She vipin from the chair and ambulated in the halls. She completed Functional Gait Assessment and then returned to the room completely independent. She got in and out of bed independent and then returned to the chair. Gait Assessment Gait Gait Assistance Required: Independent Distance (Feet) 300 Assistive Devices Assistive Device Gait Belt Gait Deviations General Gait Pattern Decreased Feet Clearance,Wide Based Gait Factors Limiting Gait Function Factors Limiting Gait Function Decreased Activity Tolerance Comments Gait Comments Pt completed FGA with score of 24/30 which is lower than norms for age matched peers ( 27.1 with SD 2.3 (Walker, 2007 ). However, pt was independent with all tasks. Stair Climbing Assessment Evaluation Level of Assist On Stairs Independent Devices Stair Climbing Assistive Devices Left Railing Technique/Endurance Stair Climbing Direction Ascend and Descend Stair Climbing Technique Step Over Step,Step to Step Number of Steps Climbed 3 Query Text: Stair Climbing Set # Repetitions (reps) 1 Comments Stair Climbing Comments Pt descended using left hand rail step over step and ascended using same rail step- to. PT-Balance Assessment Sitting Balance and Reactions Static Sitting Balance Ability Normal Dynamic Sitting Balance Ability Normal Standing Balance and Reactions Static Standing Balance Ability Normal Dynamic Standing Balance Ability Normal Functional Assessments Functional Tests Functional Gait Assessment 24/30 M5 PT-IP Objective Assessments Start: 05/16/20 08:41 Freq: NEEDED Status: Active Protocol: Document 05/16/20 11:13 AW (Rec: 05/16/20 11:36 AW [id number]) Orientation Orientation/Cognition Level of Alertness Alert Orientation Name,Day of Week,Place, Situation Language Function Ability No Deficits Noted Safety Awareness Understands Safety Issues Memory Description No Deficits Noted Gross Range of Motion Upper Extremity ROM Assessment Within Functional Limits Lower Extremity ROM Assessment Within Functional Limits Strength Upper Extremity Strength Assessment Within Functional Limits Lower Extremity Strength Assessment Within Functional Limits Comments Strength Comments No unilateral weakness identified Coordination Assessment Gross Coordination Gross Coordination WNL Assessment Finger to Nose Test Normal Performance Sensation Assessment Sensation Gross Sensation WNL Muscle Tone Muscle Tone WNL Yes M6 PT-IP Treatment Start: 05/16/20 08:41 Freq: NEEDED Status: Active Protocol: Document 05/16/20 11:13 AW (Rec: 05/16/20 11:36 AW [id number]) Physical Therapy Treatment Education Education Provided Precautions,Safety Other Treatments Other Treatment Performed Provided education on role of PT and signs of stroke. M7 PT-IP Assessment and Plan Start: 05/16/20 08:41 Freq: NEEDED Status: Active Protocol: Document 05/16/20 11:13 AW (Rec: 05/16/20 11:36 AW [id number]) PT Summary Assessment and Plan Summary Assessment Summary Tiny is a 65 yo woman seen for PT evaluation after being admitted with left-sided weakness and signs of dysmetria. MRI identifies small acute infarct in the right striatocapular region. Tiny acute infarct in the adjacent right periventricular white matter. Mild-to- moderate microvascular ischemic changes. Pt is independent in all regards at baseline and provides caregiver assist to her mother . On evaluation, pt completed all mobility independently. She scored 24/30 on Functional Gait Assessment which is below norms for her age- matched peers but appears to be consistent with her baseline. Pt has no acute PT needs. Frequency of Treatment Frequency Of Treatment Discharge Recommendations To Nursing Amount of Assist Needed Independent Discharge Recommendations PT Discharge Recommendations Home Transportation Needs at Discharge Private Vehicle
[2020-05-16 12:00] VITALS: BP 142/93; PULSE 85; RESP 16; TEMP 36.8; O2SAT 95; O2SAT 97
--- NOTE | 2020-05-16 13:05 | P.DS_ITS ---
History of Present Illness History of Present Illness Date Patient Seen: 05/16/20 Time Patient Seen: 13:05 Chief complaint: Left Sided weakness Narrative: Tiny Almodovar is a 65-year-old female with past medical history of hep C cirrhosis (obtained during childhood from blood transfusion), hypertension who presented with sudden onset of left-sided weakness starting this morning around 9:30 a.m.. She resides in [place] normally, but is currently in [place] taking care of her mother. She reports some increased stress recently due to family strife. This morning she was in her usual state of health, and went to go get coffee. When she attempted to drink her coffee at the [place], she felt her left arm was very heavy and she could not hold her coffee. She was able to walk back to her boat, with waxing and waning UE symptoms, but then she felt a similar heaviness in her left leg and had difficulty moving it as well. She had some trouble balancing that was noted as well. She did look at herself in the mirror and did not notice a facial droop or any difficulty with words. She was able to call her sister She states that her sister has had a TIA, but denies any similar symptoms in the past. She denies any recent fevers, chills, chest pain, palpitations, shortness of breath, orthopnea, lower extremity edema. She does have occasional abdominal swelling that is usually controlled with her Lasix and Aldactone which she has been taking chronically. In the emergency room, her vital signs were notable for mild hypertension into the 180 systolics, but the rest of her vital signs were unremarkable. Laboratory evaluation showed an unremarkable CBC, normal coagulation studies. Chemistries revealed a mildly elevated chloride at 110, and a glucose of 150 but was further unremarkable. Troponin was negative. COVID-19 testing was negative. EKG showed normal sinus rhythm with an isolated T-wave inversion lead V3 only, a nonspecific finding. There were no ST elevations or depressions indicative of ischemia. CT head was negative. In the emergency room her left- sided weakness improved. The ER discussed the case with tele neurology, given patient's low stroke scale and improving symptoms tPA was not recommended. The patient was admitted under observation status for further evaluation and monitoring of likely TIA or acute CVA. Discharge Providers Provider Date of admission: 05/15/20 11:03 Discharge Date: 05/16/20 Consults: 05/15/20 14:59 Consult to Occupational Therapy Evaluate & Treat Comment: Physician Instructions: Evaluate and treat Consult to Physical Therapy Evaluate & Treat Comment: Physician Instructions: Evaluate and Treat Discharge provider: Checo Phillips DO Summary Hospital Course Discharge Diagnosis: Please see hospital course by problem list below: Hospital Course: Tiny Almodovar is a 65-year-old female with past medical history of hep C cirrhosis (obtained during childhood from blood transfusion), hypertension who presented with sudden onset of left-sided weakness starting this morning around 9:30 a.m.. She still has some minor symptoms including some left-sided dysmetria and objective weakness although her symptoms are improving. She is admitted with likely TIA versus acute CVA, for further evaluation and artem gonzales. 1. Acute CVA, present on admission, symptoms resolved - Patient on admission with some L sided dysmetria and weakness but improved. Symptoms started at [address] in the emergency room did not show acute hemorrhage. Given improving symptoms tPA was not recommended by tele neurology in the emergency room. Patient was given aspirin 324 mg. Given her current stroke scale of 1, or ABCD2 score of 6 (see below) she would benefit from dual antiplatelet therapy for the next 3 weeks. Patient was additionally given Plavix 300 mg. She will continue on aspirin 81 mg daily for the rest of her life, and Plavix 75 mg daily for the next 3 weeks for additional stroke prevention. -continue telemetry -have ordered MR stroke protocol which showed Small acute infarct in the right striatocapular region. Tiny acute infarct in the adjacent right periventricular white matter. Btay-al-heggcocl microvascular ischemic changes. No large vessel disease. -PT/OT showed no significant deficits on evaluation. -A1c shows pre-diabetes at 5.8%, LDL 119, TSH 4.84 with normal free t4. -patient does have history of hep C cirrhosis but normal liver function testing. Started on lipitor 40 mg nightly. Would recommend additional LFT evaluation by PCP after initiation of therapy. -allowed for permissive hypertension over the 1st 24 hours, but improved to 140s systolic on resumption of home medications. Follow up with PMD for further blood pressure check and possible initiation of an alternative agent. -TTE showing hyperdynamic function, possible diastolic dysfunction, and trivial dynamic left ventricular intracavitary obstruction. Discussed with cardiology and this finding is of no clinical significance. No significant valvular pathology or evidence of intra-atrial shunt. 2. Hypertension - Patient hypertensive on admission, possibly in the setting of acute CVA. Allowed for permissive hypertension over the 1st 24 hours. She will continue on her home dose of Lasix and Aldactone given hep C cirrhosis. 3. Hepatitis-C cirrhosis -continue home Lasix and Aldactone. Patient did not complain of worsened abdominal swelling or pain. Code: Full, surrogate decision maker was the patient's sister. Dispo: Discharged home. Exam Vital Signs (past 8 hours): - 05/16/20 08:00 05/16/20 12:00 Temperature 97.0 F L 98.2 F Pulse Rate 79 85 Respiratory Rate 18 16 Blood Pressure 119/88 142/93 H Pulse Oximetry 94 95 Oxygen Delivery Method Room Air Oxygen Flow Rate 0 Narrative Exam Narrative: GENERAL APPEARANCE: Well developed, well nourished, obese with BMI of 35.1, in no acute distress. SKIN: Inspection of the skin reveals no rashes, ulcerations or petechiae. HEENT: Normocephalic atraumatic, extraocular muscles are intact, oropharynx is clear and mucous membranes are moist, neck is supple without adenopathy NECK: Supple and symmetric. There was no thyroid enlargement, and no tenderness, or masses were felt. CHEST: Normal AP diameter and normal contour without any kyphoscoliosis. LUNGS: Auscultation of the lungs revealed no wheezes, rhonchi, or rales. CARDIOVASCULAR: There was a regular rate and rhythm without any murmurs, gallops, rubs. Peripheral pulses were 2+ and symmetric. ABDOMEN: Soft and nontender with normal bowel sounds. No ascites was noted. MUSCULOSKELETAL: There was no tenderness or effusions noted. Muscle strength and tone were normal. EXTREMITIES: No cyanosis, clubbing or edema. NEUROLOGIC: Alert and oriented x 3. Normal affect. Strength is +5/5 in the Upper Extremities and Lower Extremities Bilaterally. Dysmetria resolved on exam today. Objective Labs Result Diagrams: 05/15/20 10:15 05/16/20 04:45 Labs: Laboratory Results - last 24 hr 05/16/20 05/16/20 05/16/20 04:45 04:45 04:45 Sodium 137 Potassium 3.5 Chloride 103 Carbon Dioxide 24 BUN 15 Creatinine 0.86 Estimated GFR > 60.0 BUN/Creatinine Ratio 17.4 Glucose 111 H Hemoglobin A1c 5.8 Calcium 9.0 Triglycerides 156 H Cholesterol 199 LDL Cholesterol, Calc 119 H HDL Cholesterol 49 TSH Free T4 05/16/20 04:45 Sodium Potassium Chloride Carbon Dioxide BUN Creatinine Estimated GFR BUN/Creatinine Ratio Glucose Hemoglobin A1c Calcium Triglycerides Cholesterol LDL Cholesterol, Calc HDL Cholesterol TSH 4.84 H Free T4 1.25 Discharge Plan Discharge Plan Patient Disposition: Home Discharge comment: You were admitted to the hospital after stroke like symptoms which ultimately resolved. Your MRI did show that you had a stroke. You are being started on medications to help reduce your risk of having another stroke. Please follow up with your primary care provider in [place] as soon as possible for a check on your blood pressure and for medication refills. Discharge orders & Medications Prescriptions: New aspirin 81 mg Tablet,Delayed Release (Dr/Ec) 81 mg PO DAILY 30 Days Qty: 30 RF: 0 atorvastatin 40 mg tablet 40 mg PO BEDTIME 30 Days Qty: 30 RF: 0 clopidogrel 75 mg Tablet 75 mg PO DAILY 21 Days Qty: 21 RF: 0 Continued cyclobenzaprine 10 mg Tablet 10 mg PO BID RF: 0 spironolactone 100 mg Tablet 100 mg PO DAILY RF: 0 calcium carbonate [Calcium 500] 500 mg calcium (1,250 mg) Tablet 1,000 mg PO DAILY RF: 0 furosemide 80 mg Tablet 80 mg PO BID RF: 0 vitamin B complex [B Complex-Vitamin B12] Tablet 1 tab PO DAILY RF: 0 cholecalciferol (vitamin D3) [Vitamin D3] 50 mcg (2,000 unit) Capsule 50 mcg PO DAILY RF: 0 Follow up/Referrals: Liliana Mack [Other] - 1 Week ( for D/c summary) Discharge Health Status Health Concerns: Acute CVA Diet/Activity/Treatments Diet: Diet as Tolerated Activity: As tolerated Visit Report/Discharge Packet Instructions: Atorvastatin, Clopidogrel, Aspirin Visit Report Forms: Patient Portal/API, Stroke Signs & Symptoms Discharge Data Attending Provider: Checo Phillips Admit Date/Time: 05/15/20 11:03 Quality VTE Deep Vein Thrombosis/Pulmonary Embolism Present on Admission: No
--- NOTE | 2020-05-16 13:44 | CM.IDA ---
Initial DCP Assessment Note Patient is a 65 yo female, resident of [place]. Patient presents after acute CVA, currently on a two week vacation. PCP: Not listed ([facility]) Payer: [employer] Reviewed chart. Met w/patient this morning and introduced [employer] role. 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 Family in [place] aware of events and trying to assist in getting patient back to her home in [place]. Patient is typically indp at baseline. Patient has been cleared by PT for return home, minimal functional deficit noted. No needs from this [employer] identified today, home w/family via private auto, close outpt f/u once home. OVIDIO Llamas
== END 2020-05-16 14:59 | disposition home or self-care (01) ==
LOC: ED 11:02 → AC 11:04
PROVIDERS: Nurse Practitioner Adult Health; Admitting Provider Internal Medicine; Emergency Provider Emergency Medicine; Referring Provider Emergency Medicine; Visit Provider Internal Medicine
DX: I63.9 Cerebral infarction, unspecified (principal); R53.1 Weakness; I10 Essential (primary) hypertension; F17.210 Nicotine dependence, cigarettes, uncomplicated; B19.20 Unspecified viral hepatitis C without hepatic coma; K74.69 Other cirrhosis of liver; E66.9 Obesity, unspecified; Z68.35 Body mass index [BMI] 35.0-35.9, adult; Z11.59 Encounter for screening for other viral diseases
CPT/HCPCS: 36415; 70450; 70548; 70553; 80048; 80053; 80061; 82550; 82962; 83036; 84439; 84443; 84484; 85025; 85610; 85730; 87635; 93005; 93306; 96372; 97161; 97165; 97530; 99285; 99291; G0378; Q3014; A9579; J1650